=== PATIENT | male | born 1945 | race Two or more races ===

== ENCOUNTER 2017-05-05 06:00 | Day surgery (SDC) | payer MEDICARE, OTHER ==
[~2017-05-05] VITALS: Ht 177.8 cm; Wt 93.0 kg
[2017-05-05] MEDS ORDERED: NITROGLYCERIN 50MCG/ML 10ML VIAL (CATH LAB) IV ONE (10:15)
[2017-05-05] MEDS ORDERED: HEPARIN SODIUM 1,000 UNIT/1ML VIAL IV ONE ×2 (10:15→14:59)
[2017-05-05] MEDS ORDERED: PHENYLEPHRINE 100MCG/ML 10ML VIAL (CATH LAB) IV ONE (10:15)
[2017-05-05] MEDS ORDERED: NICARDIPINE 100MCG/ML 10ML VIAL (CATH LAB) IV ONE (10:15)
[2017-05-05] MEDS ORDERED: FENTANYL CITRATE/PF 50MCG/ML 2ML VIAL ONE (14:59)
[2017-05-05] MEDS ORDERED: MIDAZOLAM HCL 2 MG/2 ML VIAL ONE (14:59)
[2017-05-05] MEDS ORDERED: ASPIRIN/SOD BICARB/CITRIC ACID 324MG TAB EFF ONE (15:00)
[2017-05-05] MEDS ORDERED: IODIXANOL 320MG/ML 100 ML BOTTLE IV ONE ×2 (15:01→15:16)
[2017-05-05] MEDS ORDERED: IOVERSOL 240MG/ML 100ML BOTTLE IV ONE (15:01)
== END 2017-05-05 16:00 | disposition home or self-care (01) ==
LOC: CARD 06:00
PROVIDERS: ATTEND Specialist
DX: I25.10 Atherosclerotic heart disease of native coronary artery without angina pectoris (principal); I10 Essential (primary) hypertension; E11.9 Type 2 diabetes mellitus without complications; Z95.5 Presence of coronary angioplasty implant and graft; Z88.8 Allergy status to other drugs, medicaments and biological substances
CPT/HCPCS: 82962; 85347; 93459; 93571; 99152; 99153; C1769; C1887; C1893; J1644; J2250; J2370; J3010; J3490; Q9967